=== PATIENT | female | born 1960 | race Caucasian/White ===

== ENCOUNTER 2021-01-25 20:38 | Inpatient (IN) | payer BC, SELFPAY ==
[2021-01-25] VITALS (9 sets, daily range): BP systolic 82–151; BP diastolic 44–96; PULSE 58–84; RESP 14–20; TEMP 36.5–36.9; O2SAT 93–100; BMI 37.3
--- NOTE | ~2021-01-25 | XR_ITS ---
EXAMINATION: XR chest 1V portable INDICATION: Pacemaker insertion TECHNIQUE: Portable AP chest at 1109 hours COMPARISON: 01/25/2021 FINDINGS: A dual-lead pacemaker of the left chest wall has been inserted which ends with its leads in expected positions. There is no pneumothorax. Cardiomegaly is noted. A mild diffuse interstitial pat tern persists but has decreased. There is no pleural effusion. The previously described retrocardiac opacity persists but is slightly decreased. IMPRESSION: 1. Pacemaker insertion without pneumothorax. 2. Cardiomegaly with improving pulmonary edema. 3. Persistent retrocardiac density, possibly pulmonary vasculature although focal infection or mass c ould have a similar appearance. Recommend followup radiographs in 10-14 days after appropriate therap y to evaluate for improvement/resolution or follow-up with CT. Reviewed, dictated and finalized at location A. IMPRESSION: 1. Pacemaker insertion without pneumothorax. 2. Cardiomegaly with improving pulmonary edema. 3. Persistent retrocardiac density, possibly pulmonary vasculature although foc al infection or mass could have a similar appearance. Recommend followup radiog raphs in 10-14 days after appropriate therapy to evaluate for improvement/resol ution or follow-up with CT.
--- NOTE | ~2021-01-25 | XR_ITS ---
EXAMINATION: XR chest 1V portable EXAM DATE: 01/25/2021 21:04 INDICATION: Right-sided back, shoulder pain for 45 minutes. Nausea. TECHNIQUE: Portable AP frontal chest x-ray was obtained. There is no prior study for comparison. FINDINGS: Cardiomegaly and pulmonary vascular congestion. Rather prominent left infrahilar density to be just vasculature. Can't exclude superimposed pneumonia or cancer, but reportedly patient's sympto ms were on the right side. Consider follow-up PA/lateral chest x-rays or chest CT. The lungs are otherwise clear. There is no pneumothorax suspected. There are no osseous abnormalities identified. IMPRESSION: 1. Retrocardiac masslike density, can't exclude pneumonia or cancer. PA/lateral chest x-ray, or ches t CT, could be nonemergent outpatient follow-up. 2. Cardiomegaly, pulmonary vascular congestion. Reviewed, dictated and finalized at location G. IMPRESSION: 1. Retrocardiac masslike density, can't exclude pneumonia or cancer. PA/latera l chest x-ray, or chest CT, could be nonemergent outpatient follow-up. 2. Cardiomegaly, pulmonary vascular congestion.
--- NOTE | ~2021-01-25 | XR_ITS ---
XR chest 2V DATE: 01/28/2021 11:00 INDICATION: 24 hours post pacemaker insertion TECHNIQUE: AP and lateral views COMPARISON: 01/27/2021 portable AP chest FINDINGS: Left-sided dual-lead pacemaker with leads overlying right atrium and right ventricle. Heart size appears borderline. No hilar or mediastinal enlargement. No pulmonary infiltrate or consolidati on, pleural effusion or pulmonary vascular congestion or pneumothorax is detected. IMPRESSION: Left dual-lead cardiac pacemaker No active pulmonary disease Reviewed, dictated and finalized at location A.
--- NOTE | 2021-01-25 20:50 | ECG_ITS ---
Measurements Intervals [place] Rate: 61 P: 34 [place]: 163 QRS: 2 QRSD: 95 T: 89 QT: 419 QTc: 425 Interpretive Statements SINUS RHYTHM DELAYED PRECORDIAL R/S TRANSITION LOW VOLTAGE- PRECORDIAL LEADS INFERIOR ST ELEVATION MYOCARDIAL INFARCT, ACUTE POSTERIOR INFARCT, ACUTE ABNORMAL ECG Electronically Signed On 01-26-2021 7:29:44 CDT by Humberto Greco D.O.
--- NOTE | 2021-01-25 20:56 | ED.GENADULT ---
HPI - General Adult General Chief complaint: Unspecified Stated complaint: RIGHT SHOULDER PAIN, SWEATS Time Seen by Provider: 01/25/21 20:52 Source: patient Mode of arrival: ambulatory Limitations: no limitations History of Present Illness HPI narrative: Patient is a 60-year-old female complaining of sudden onset of right shoulder pain 10 out of 10, aching, constant, nonradiating accompanied by diaphoresis that started approximately 1 hour prior to arrival. Patient denies any shortness of breath, abdominal pain, nausea, vomiting, fever or chills. Related Data Home Medications Medication Instructions Recorded Confirmed amlodipine 01/25/21 levothyroxine 01/25/21 potassium citrate meq PO 01/25/21 Allergies Allergy/AdvReac Type Severity Reaction Status Date / Time No Known Allergies Allergy Verified 01/25/21 20:59 Review of Systems Review of Systems: All systems reviewed & are unremarkable except as noted in HPI and below Constitutional: Constitutional: Denies body ache(s), Denies chills, Denies excessive sweating, Denies fatigue, Denies fever(s), Denies headache(s), Denies lethargy, Denies malaise, Denies weakness and Denies weight loss Eyes: Eyes: Denies blurry vision, Denies change in vision and Denies loss of vision ENT: Denies dizziness, Denies ear discharge, Denies headache(s), Denies lip swelling, Denies epistaxis, Denies nasal congestion, Denies neck pain, Denies throat swelling and Denies tongue swelling Cardiovascular: Cardiovascular: Denies chest pain, Denies chest pain at rest, Denies chest pain with activity, Denies diaphoresis, Denies rapid heart rate, Denies edema, Denies irregular heart rhythm, Denies lightheadedness, Denies palpitations, Denies dyspnea and Denies dyspnea on exertion Respiratory: Respiratory: Denies chest congestion, Denies cough, Denies hemoptysis, Denies dyspnea and Denies dyspnea on exertion Gastrointestinal: Gastrointestinal: Denies abdominal pain, Denies melena, Denies hematochezia, Denies diarrhea, Denies nausea, Denies vomiting and Denies hematemesis Musculoskeletal: Musculoskeletal: Denies abnormal gait, Denies deformity, Denies joint swelling, Denies limited range of motion, Denies neck pain and Denies numbness Neurologic: Denies Abnormal speech present, Denies abnormal gait, Denies confusion, Denies dizziness, Denies headache(s), Denies focal weakness, Denies loss of vision, Denies numbness, Denies Other visual disturbances, Denies Sensory deficit (Neuro) and Denies weakness Psychiatric: Psychiatric: Denies confusion, Denies depression, Denies auditory hallucinations, Denies homicidal ideation and Denies suicidal ideation Endocrine: Endocrine: Denies cold intolerance, Denies excessive sweating, Denies fatigue, Denies heat intolerance and Denies palpitations Hematologic/Lymphatic: Hematologic/Lymphatic: Denies easy bleeding and Denies easy bruising Allergic/Immunologic: Allergic/Immunologic: Denies lip swelling, Denies throat swelling and Denies tongue swelling PMFSH Comments Past medical history: Hypertension, diabetes, hyperlipidemia Social history: Positive for smoker, no EtOH or drug use Family history: Positive for coronary artery disease, hypertension and diabetes Exam Const: General: cooperative, healthy appearing, comfortable, no acute distress, well developed, alert and awake; No confusion Orientation/consciousness: oriented to person, oriented to place, oriented to time, patient oriented x3 and No confusion Limitations: no limitations HENMT: Head: normal to inspection, normocephalic and atraumatic Ears: hearing grossly normal bilaterally, TM normal on the right and TM normal on the left General nose exam: Normal external nose present, Normal nares present and No nasal discharge present Face and sinus: normal facial exam Mouth: Yes Normal oral and palatal mucosa present, Yes lip normal, Yes tongue normal and Yes oropharynx normal Throat: posterior oropharynx moni
[2021-01-25 21:02] LABS: Basophils Absolute Auto 0.1 K/mm3 (0.0-0.1); Basophils Percent Auto 0.9 % (0.2-1.2); Eosinophils Absolute Auto 0.2 K/mm3 (0-0.3); Hematocrit 46.7 % (37.0-47.0); Hemoglobin 15.4 g/dL (12.0-15.0); Immature Granulocyte Absolute 0.03 K/mm3 (0.00-0.031); Immature Granulocyte Percent A 0.3 % (0-0.5); Lymphocytes Absolute Auto 3.15 K/mm3 (0.9-3.2); Lymphocytes Percent Auto 34.8 % (18.3-44.2); Mean Corpuscular Volume 96.9 fl (80-100); Mean Platelet Volume 10.2 fl (7.4-10.4); Monocytes Absolute Auto 0.5 K/mm3 (0.1-0.6); Monocytes Percent Auto 5.3 % (2.6-8.5); Neutrophils Absolute Auto 5.1 K/mm3 (1.3-6.7); Neutrophils Percent Auto 56.7 % (45.5-73.1); Platelet Count Result 251 k/mm3 (150-375); Red Blood Count 4.82 M/mm3 (4.2-5.4); Red Cell Distribution Width 11.9 % (11.5-14.5); White Blood Count 9.1 K/mm3 (4.5-10.0)
[2021-01-25] MEDS: HEPARIN SODIUM 5,000 UNITS/ML VIAL 4000 UNITS IV PUSH (21:05)
[2021-01-25] MEDS: TICAGRELOR 90 MG TABLET 180 MG PO (21:07)
[2021-01-25] MEDS: NITROGLYCERIN SL 0.4 MG TABLET SUBLINGUAL (21:09)
[2021-01-25 21:11] LABS: INR 0.9; Prothrombin Time 12.1 Seconds (11.1-14.7)
[2021-01-25 21:12] LABS: Anion Gap 12 mmol/L (8-16); Blood Urea Nitrogen 14 mg/dL (7-17); Calcium 9.8 mg/dL (8.4-10.2); Carbon Dioxide 25 mmol/L (22-30); Chloride 100 mmol/L (98-107); Estimated CRCL calculation 52 ml/min; Estimated Glomerular Filt Rate 46; Glucose 164 mg/dL (65-105); Partial Thromboplastin Time 28.1 SECONDS (22.3-36.8); Potassium 3.4 mmol/L (3.4-5.0); Sodium 137 mmol/L (137-145)
--- NOTE | 2021-01-25 21:15 | PC.NURSE ---
2L NS started on pt addison md verbal order at this time.
[2021-01-25 21:23] LABS: Troponin I < 0.012 ng/mL (0.000-0.034)
[2021-01-25] MEDS: SODIUM CHLORIDE 0.9% IV 1,000 ML 999 ML (21:23)
--- NOTE | 2021-01-25 21:44 | PC.NURSE ---
to laboratory asst with 2 rn .
--- NOTE | 2021-01-25 22:40 | ECG_ITS ---
Measurements Intervals [place] Rate: 59 P: [place]: 0 QRS: 16 QRSD: 101 T: 111 QT: 397 QTc: 396 Interpretive Statements ECTOPIC ATRIAL RHYTHM WITH INTERMITTENT SINUS COMPLEXES LOW QRS VOLTAGE IN PRECORDIAL LEADS INFERIOR INFARCT, PROBABLY RECENT BASELINE ARTIFACT- II, III, AVR, AVF, V4-V6 ABNORMAL ECG Electronically Signed On 01-26-2021 7:36:58 CDT by Humberto Greco D.O.
--- NOTE | 2021-01-25 22:47 | WPDCARDPROC ---
Cardiac Cath Procedure Note Date of procedure:: 01/25/21 Performing physician:: Alpesh Walsh MD Indication:: ST-elevation MN Brief clinical history:: this is a 60-year-old woman with no previous known history of cardiac disease. She has hypertension diabetes obesity and cigarette smoking as risk factors. She presents to the emergency room this evening with interscapular back pain that began a short time before coming in. ECG in the emergency room demonstrated evidence of inferolateral ST elevation and in this setting emergency angiography has been requested. Procedure Procedure performed:: Emergency coronary angiography PCI to circumflex left ventriculography Sedation/Medication given:: fentanyl 50 mg Versed 2 start time 9:52 p.m. case time 10:35 p.m. sedation provided by Agatha Landis RN, trained observer Access site:: right femoral artery Estimated blood loss:: 15-20 cc Procedure note:: patient was brought to the cardiac catheterization lab in the emergency setting described above. The right femoral triangle was prepared and draped in the usual fashion. Anesthesia was provided with 1% lidocaine infiltrated locally. Using the modified Seldinger technique the femoral artery was punctured and a 6 Cambodian vascular sheath was placed. It took several minutes to access the femoral artery, arterial access was somewhat challenging. Following this I used a 5 Cambodian FL4 catheter to engage inject the left coronary artery in multiple projections. Next a 5 Cambodian JR4 catheter was used to engage inject the right coronary artery. Following this PCI of the circumflex was recommended and carried out as detailed below. The patient had received aspirin and Brilinta in the emergency room. She therefore received no additional anti-platelet therapy in the seed laboratory assistant. She was placed on systemic anticoagulation with bolus and infusion of Angiomax for this PCI. Following completion of intervention as detailed below a 5 Cambodian angled pigtail catheter was used to measure left-sided hemodynamics and to injected LV g in the DAVALOS projection. The case was then terminated the sheath was sutured position she was taken to the ICU for post MN /PCI recovery in stable condition there were no procedural complications and the was no sign of groin hematoma upon the. Findings:: Hemodynamics: Central aortic pressure is 110 over 64 left ventricle 110 over 5 end-diastolic pressure 18 there is no significant gradient on pullback across the. Left ventricle: the LV is modestly dilated there is akinesis of the posterior segment the anterolateral segment is modestly hypodynamic the global ejection fraction of visually estimated to be 40%. The left main coronary artery is large in caliber and widely patent the left anterior descending is a large caliber artery extending down to around the apex. The LAD has modest luminal plaquing with mild plaquing of atherosclerosis but no flow-limiting disease is identified. The circumflex is a rather large vessel there is a very proximal small OM 1 branch that appears to be free of significant disease after this the trunk of the circumflex is 100% occluded. This appears to be in abrupt thrombotic occlusion compatible with the acute MN. Right coronary artery is large in caliber and dominant to the posterior circulation right coronary also has modest diffuse luminal irregularities but no functionally significant coronary disease is seen. Intervention: The left coronary artery was engaged using a 6 Cambodian CLS 3.5 guiding catheter. I used a 0.014 BMW guidewire to probe the occlusion of the circumflex traverse the occluded segment into the distal aspect of the circumflex a very large OM branch. Following this the site of the occlusion was pre-dilated using a 3 x 20 mm emerge PTCA balloon restoring ROSE MARY 3 flow into the vessel. Now the vessel can be seen was very large. I stented the original target lesion at the site of the
--- NOTE | 2021-01-25 22:58 | PM.IMHP ---
H&P: HPI History of Present Illness Date/Time: 01/25/21 22:58 Chief Complaint: interscapular back pain Narrative: this is a 60-year-old woman who I am seeing briefly in the cardiac catheterization lab as she is being prepared for emergency angiography in the setting of ST-elevation ND. The patient states she has no previous history of known cardiac problems. She has been treated for hypertension chronically as well as recently being told that she has diabetes and some dyslipidemia. The patient has no history ischemic heart disease prior to this. She began to experience abrupt interscapular back pain describing this as a severe aching sensation about 8/10 in intensity. She came to the emergency room with the symptoms in private vehicle and upon arrival was found to have ST elevation in the in the inferolateral leads. Because of this emergency angiography and STEMI protocol was activated. Review of Systems Review of Systems: ROS unobtainable: Yes unobtainable due to medical condition Meds Home Medications and Allergies Home Medications Medication Instructions Recorded Confirmed Type amlodipine 01/25/21 History levothyroxine 01/25/21 History potassium citrate meq PO 01/25/21 History Allergies Allergy/AdvReac Type Severity Reaction Status Date / Time No Known Allergies Allergy Verified 01/25/21 20:59 Vital Signs Vital Signs - 24 hr 01/25/21 20:47 01/25/21 21:00 01/25/21 21:11 Temperature 36.9 C Pulse Rate 68 73 Respiratory Rate 14 16 Blood Pressure 151/96 H 140/86 82/44 L Pulse Oximetry 98 100 01/25/21 21:17 01/25/21 21:21 01/25/21 21:27 Temperature Pulse Rate 58 L 65 70 Respiratory Rate 19 16 16 Blood Pressure 104/57 L 109/62 128/72 Pulse Oximetry 95 96 96 01/25/21 21:41 Temperature Pulse Rate 68 Respiratory Rate 16 Blood Pressure 135/70 Pulse Oximetry 96 Exam Const: Other: Obese white female appearing her stated age appears to be remarkably stoic given the current situation. HENMT: Mouth: Yes moist mucous membranes Eyes: Sclera: sclerae normal Pupils: Equal, round and reactive pupils present Neck: Neck: supple Other: No obvious JVD carotid pulses are intact and are free of bruits Resp: Effort & Inspection: normal respiratory effort Auscultation: clear to auscultation bilaterally Cardio: Rate: regular rate Rhythm: regular rhythm Other: S4 is audible the PMI is not palpable there is no murmur GI: GI Palp: Yes Soft to palpation Auscultation: normal bowel sounds Skin: General skin exam: normal color Neuro: Cognition (Neuro): normal cognition Extrem: General: normal to inspection H&P: Results Labs Labs: Short CBC 01/25/21 Range/Units 20:57 WBC 9.1 (4.5-10.0) K/mm3 Hgb 15.4 H (12.0-15.0) g/dL Hct 46.7 (37.0-47.0) % Plt Count 251 (150-375) k/mm3 BMP 01/25/21 20:57 Sodium 137 Potassium 3.4 Chloride 100 Carbon Dioxide 25 BUN 14 Creatinine 1.20 H Glucose 164 H Calcium 9.8 Cardiac Enzymes 01/25/21 Range/Units 20:57 Troponin I < 0.012 (0.000-0.034) ng/mL Assessment and Plan Additional Plan this is a 60-year-old lady with risk factors including hypertension diabetes and cigarette smoking who presents to the hospital with abrupt onset of interscapular back pain a short time ago ECG is diagnostic of acute inferolateral myocardial infarction. In this setting and emergency angiogram is about to take place following that revascularization will be carried out as indicated by those findings. Alpesh Walsh MD [facility]
--- NOTE | 2021-01-25 23:00 | ADMGEN ---
This patient, Shanelle Rehman, was admitted to Intensive Care Unit-5. Patient/family oriented to hospital policies and general routines including ID bracelet, bed and alarms, visiting hours, pain management, procedures, bathroom and other care routines, personal items, smoking policy, room service/diet, and visiting hours. Information on how to activate the Rapid Response Team has been discussed. Patient/Family are encouraged to report perceived risks to care and to ask questions if they do not understand what they are told or what they should do.
[2021-01-25 23:24] LABS: Cholesterol 208 mg/dL (0-200); HDL Direct 34 mg/dL; Triglycerides 167 mg/dL (<150)
[2021-01-25 23:35] LABS: LDL Cholesterol Direct 116 mg/dL
[2021-01-25] MEDS: SODIUM CHLORIDE 0.9% IV 1,000 ML 125 ML IV CONT (23:59)
[2021-01-26] VITALS (26 sets, daily range): BP systolic 106–163; BP diastolic 69–105; PULSE 60–105; RESP 15–24; TEMP 36.7–37.2; O2SAT 92–99
[2021-01-26 02:21] LABS: Troponin I > 80.000 ng/mL (0.000-0.034)
--- NOTE | 2021-01-26 05:11 | ECG_ITS ---
Measurements Intervals [place] Rate: 73 P: [place]: 0 QRS: 19 QRSD: 88 T: 147 QT: 390 QTc: 430 Interpretive Statements WANDERING PACEMAKER OR ECTOPIC ATRIAL RHYTHM LOW QRS VOLTAGE IN LIMB LEADS NONSPECIFIC T-WAVE ABNORMALITY- INF/LAT LEADS BASELINE ARTIFACT- I, III, AVL, AVF ABNORMAL ECG Electronically Signed On 01-26-2021 21:33:57 CDT by Humberto Greco D.O.
[2021-01-26 06:03] LABS: Troponin I > 80.000 ng/mL (0.000-0.034)
[2021-01-26] MEDS: carvediloL 6.25 MG TABLET PO (08:11)
[2021-01-26] MEDS: ROSUVASTATIN 10 MG TABLET 20 MG PO (08:12)
[2021-01-26] MEDS: TICAGRELOR 90 MG TABLET PO ×2 (08:12→21:10)
[2021-01-26] MEDS: LOSARTAN POTASSIUM 25 MG TABLET PO (08:12)
[2021-01-26] MEDS: ENOXAPARIN 40 MG/0.4 ML SYRINGE SUB-Q (08:13)
[2021-01-26] MEDS: ASPIRIN 81 MG CHEWABLE TABLET PO (08:16)
[2021-01-26 08:46] LABS: Add Urine Microscopic? YES; Appearance Urine Clear (Clear); Bacteria Urine Trace /hpf; Bilirubin Urine Negative (Negative); Blood Urine Negative (Negative); Color Urine Yellow (Yellow); Glucose Urine UA Negative (Negative); Ketones Urine Trace mg/dL (Negative); Leukocyte Esterase Ur 3+ LEU/UL (Negative); Nitrate Urine Negative (Negative); Protein Urine Negative (Negative); Specific Grav Ur 1.016 (1.001-1.035); Squamous Epithelial Cell Urine Rare /hpf (Few); Urobilinogen Urine Negative mg/dL (<2.0)
--- NOTE | 2021-01-26 08:49 | PM.PNCARD ---
Progress Note: A&P Additional Plan 60-year-old lady with: Coronary artery disease presenting last night for the 1st time with acute ST-elevation IL an abrupt occlusion of the circumflex after OM1. Two Orsiro drug-eluting stents were deployed in this vessel with a very nice angiographic result. Vessel was very large in caliber. Troponin rise was as expected quite high. She is asymptomatic and hemodynamically stable this morning. We will transfer her to IMU and anticipate couple of more days in the hospital before discharge. spoke to the patient at some length about the huge importance of smoking cessation. Alpesh Walsh MD [facility] Subjective Date/time seen: Date of service:01/26/21 08:49 Interval history: Follow-up visit in this 60-year-old lady with: Acute ST-elevation [place] with abrupt occlusion of the circumflex after OM1. Status post successful PCI with 2 large drug-eluting stents restoring ROSE MARY 3 flow in the remainder of the vessel. Very high troponin rise following this procedure. Patient is now asymptomatic this morning. Did have a run of nonsustained ventricular tachycardia earlier this morning which was asymptomatic and did not require treatment. Exam Const: General: comfortable and no acute distress Other: Pleasant obese lady in no distress HENMT: Mouth: Yes moist mucous membranes Eyes: Sclera: sclerae normal Pupils: Equal, round and reactive pupils present Neck: Neck: supple and no JVD Carotids: bruit Resp: Effort & Inspection: normal respiratory effort Auscultation: clear to auscultation bilaterally Cardio: Rate: regular rate Rhythm: regular rhythm Other: no murmur no gallop GI: GI Palp: Yes Soft to palpation Auscultation: normal bowel sounds Skin: General skin exam: normal color Neuro: Cognition (Neuro): normal cognition Extrem: General: normal to inspection Other: right groin puncture site looks fine no hematoma no ecchymosis no bruit Objective Data Vital Signs Vital Signs: Vital Signs - 24 hr 01/25/21 20:47 01/25/21 21:00 01/25/21 21:11 Temperature 36.9 C Pulse Rate 68 73 Respiratory Rate 14 16 Blood Pressure 151/96 H 140/86 82/44 L Pulse Oximetry 98 100 01/25/21 21:17 01/25/21 21:21 01/25/21 21:27 Temperature Pulse Rate 58 L 65 70 Respiratory Rate 19 16 16 Blood Pressure 104/57 L 109/62 128/72 Pulse Oximetry 95 96 96 01/25/21 21:41 01/25/21 23:00 01/25/21 23:07 Temperature 36.5 C Pulse Rate 68 65 84 Respiratory Rate 16 20 Blood Pressure 135/70 116/73 Pulse Oximetry 96 93 01/26/21 00:00 01/26/21 01:38 01/26/21 01:40 Temperature Pulse Rate 68 72 65 Respiratory Rate 16 18 18 Blood Pressure 106/72 127/81 134/82 Pulse Oximetry 92 95 94 01/26/21 01:54 01/26/21 02:00 01/26/21 02:07 Temperature Pulse Rate 60 66 65 Respiratory Rate 18 16 Blood Pressure 111/74 115/80 Pulse Oximetry 95 94 01/26/21 02:40 01/26/21 03:00 01/26/21 04:00 Temperature 36.7 C Pulse Rate 63 69 66 Respiratory Rate 16 20 15 Blood Pressure 113/69 116/75 128/71 Pulse Oximetry 95 95 95 01/26/21 05:00 01/26/21 06:00 01/26/21 07:00 Temperature Pulse Rate 63 76 80 Respiratory Rate 16 22 H 16 Blood Pressure 112/71 129/83 129/77 Pulse Oximetry 94 95 95 01/26/21 08:00 01/26/21 08:11 Temperature Pulse Rate 64 79 Respiratory Rate 20 Blood Pressure 129/73 Pulse Oximetry 94 Intake/Output Intake/Output: Intake & Output 01/23/21 01/24/21 01/25/21 01/26/21 23:59 23:59 23:59 23:59 Intake Total 1200 Output Total 2300 Balance -1100 Meds/Results Medications: Active Medications Generic Name Dose Route Start Last Admin Trade Name Freq PRN Reason Stop Dose Admin Aspirin 81 mg 01/26/21 08:00 01/26/21 08:16 Aspirin 81 Mg Chewable Tablet PO 81 mg DAILY@0800 [facility] Administration Carvedilol 6.25 mg 01/26/21 09:00 01/26/21 08:11 Carvedilol 6.25 Mg Tablet PO 6.25 mg Q12HR RUTH Administration E
[2021-01-26 09:13] LABS: Basophils Percent Auto 0.3 % (0.2-1.2); Eosinophils Percent Auto 0.3 % (0-4.4); Hematocrit 47.9 % (37.0-47.0); Hemoglobin 15.9 g/dL (12.0-15.0); Immature Granulocyte Absolute 0.03 K/mm3 (0.00-0.031); Immature Granulocyte Percent A 0.3 % (0-0.5); Lymphocytes Absolute Auto 2.39 K/mm3 (0.9-3.2); Lymphocytes Percent Auto 20.9 % (18.3-44.2); Mean Corpuscular HGB Conc 33.2 g/dl (32-36); Mean Corpuscular Hemoglobin 32.6 pg (26-34); Mean Corpuscular Volume 98.2 fl (80-100); Mean Platelet Volume 10.4 fl (7.4-10.4); Monocytes Absolute Auto 0.7 K/mm3 (0.1-0.6); Monocytes Percent Auto 6.5 % (2.6-8.5); Neutrophils Absolute Auto 8.2 K/mm3 (1.3-6.7); Neutrophils Percent Auto 71.7 % (45.5-73.1); Platelet Count Result 225 k/mm3 (150-375); Red Blood Count 4.88 M/mm3 (4.2-5.4); Red Cell Distribution Width 11.9 % (11.5-14.5); White Blood Count 11.5 K/mm3 (4.5-10.0)
--- NOTE | 2021-01-26 09:24 | WPDCNINT ---
Assessment and Plan Assessment and plan (1) ST elevation (STEMI) myocardial infarction: Qualifiers: Involved coronary artery: unspecified coronary artery Qualified Code(s): I21.3 - ST elevation (STEMI) myocardial infarction of unspecified site Code(s): I21.3 - ST elevation (STEMI) myocardial infarction of unspecified site Status: Acute Assessment and Plan: status post PCI and stent placement in proximal circumflex continue aspirin beta-thuan statin ARB (2) NSVT (nonsustained ventricular tachycardia): Code(s): I47.2 - Ventricular tachycardia Status: Acute Assessment and Plan: secondary to OK check electrolytes continue beta-thuan check echo telemetry monitoring (3) Diabetes mellitus: Code(s): E11.9 - Type 2 diabetes mellitus without complications Status: Acute Assessment and Plan: patient was recently diagnosed with diabetes mellitus although she is currently not on any treatment for it sliding scale insulin at this time (4) Hypertension: Code(s): I10 - Essential (primary) hypertension Status: Acute Assessment and Plan: on beta-thuan and ARB (5) Hyperlipidemia: Code(s): E78.5 - Hyperlipidemia, unspecified Status: Acute Assessment and Plan: Crestor (6) Ischemic cardiomyopathy: Code(s): I25.5 - Ischemic cardiomyopathy Status: Acute Assessment and Plan: check echocardiogram (7) Dysuria: Code(s): R30.0 - Dysuria Status: Acute Assessment and Plan: patient was recently treated for UTI as an outpatient but she states she continues to have dysuria check UA and culture (8) Tobacco abuse: Code(s): Z72.0 - Tobacco use Status: Acute Assessment and Plan: patient was counseled to quit smoking Additional Plan DVT prophylaxis - subcu low vent Nutrition - cardiac diet Code Status - Full Code transfer out of ICU today Curriculum And Assessment Director Consult Note Consult date: 01/26/21 Time Seen: 08:00 HPI: Shanelle Rehman is a 60 year old female with past medical history of diabetes which was recently diagnosed, hypertension, hyperlipidemia, hypothyroidism and smoking who presented yesterday with chief complaint of back pain. Back pain was in the upper back in the middle, 9-10 out of 10 severe, sharp, no radiation no aggravating or relieving factors, pain resolved only after cardiac catheterization. symptoms were acid with nausea but no vomiting no shortness of breath or palpitations. workup in the ER showed ST segment elevation and code STEMI was activated. Patient was taken to supervisor cytogenetic laboratory for cardiac catheterization and was found to be having obstruction of circumflex. Patient had 2 stents placed and also injection of nitroglycerin for spasm. EF was estimated at 40%. Resolved at that time and she was admitted to ICU for further evaluation management. This more patient states she has back pain in the lower back which is chronic from laying in bed. Pain is 5/10 severe, aching quality with no radiation aggravating or relieving factor. She would like to set up. She denies any other complaints at this time. Review system was positive for dysuria. She was diagnosed with UTI about a month ago and was treated as an outpatient with antibiotics. She states she continues to have some dysuria although denies any fever chills or rigors. No abdominal pain. No hematuria or foul-smelling urine. Review of systems also positive for chronic back pain in lower back. All the systems were reviewed and were negative . Past medical history- diabetes hypertension hyperlipidemia hypothyroidism past surgical history- 3 C sections social history- no alcohol or drug use, works a desk Job, smokes 3/4 of a pack per day for last 16 years. Review of Systems Review of Systems: All systems reviewed & are unremarkable except as noted in HPI and below (HPI) PMFSH Past Me
[2021-01-26 09:25] LABS: Alanine Aminotransferase 68 U/L (4-35); Albumin Level 4.1 g/dL (3.5-5.1); Alkaline Phosphatase 78 U/L (38-126); Anion Gap 7 mmol/L (8-16); Aspartate Amino Transferase 334 U/L (14-36); Bilirubin,Total 0.7 mg/dL (0.2-1.3); Blood Urea Nitrogen 11 mg/dL (7-17); Carbon Dioxide 23 mmol/L (22-30); Chloride 107 mmol/L (98-107); Estimated CRCL calculation 67 ml/min; Estimated Glomerular Filt Rate > 60; Glucose 121 mg/dL (65-105); Magnesium 1.7 mg/dL (1.6-2.3); Potassium 4.2 mmol/L (3.4-5.0); Sodium 137 mmol/L (137-145)
[2021-01-26 09:46] LABS: Hemoglobin A1C 6.7 % (<5.7)
--- NOTE | 2021-01-26 10:01 | PC.NURSE ---
Cardiopulmonary Rehab Services flyer was given to patient in cardiac admissions folder.
[2021-01-26 12:36] LABS: Glucose Point of Care 146 mg/dl (65-105)
[2021-01-26 14:36] LABS: Glucose Point of Care 181 mg/dl (65-105)
--- NOTE | 2021-01-26 14:36 | ECG_ITS ---
Measurements Intervals [place] Rate: 87 P: AL: 0 QRS: 3 QRSD: 106 T: 146 QT: 372 QTc: 449 Interpretive Statements SINUS RHYTHM WITH SINUS ARRHYTHMIA INFERIOR INFARCT, AGE INDETERMINATE BORDERLINE ST-T WAVE ABNORMALITY- ANTEROLAT/HIGH LAT LEADS BASELINE ARTIFACT- AVF, V4-V6 ABNORMAL ECG Electronically Signed On 01-30-2021 9:46:05 CDT by Humberto Greco D.O.
[2021-01-26] MEDS: ATROPINE SULFATE 1 MG/10 ML SYRINGE 0.5 MG IV PUSH (14:40)
[2021-01-26] MEDS: DOPamine 400 MG/D5W 250 ML 400 MG/250 ML BAG 8.72 MG IV CONT (14:40)
[2021-01-26 15:04] LABS: Hematocrit 48.8 % (37.0-47.0); Hemoglobin 16.1 g/dL (12.0-15.0); Mean Corpuscular Hemoglobin 32.4 pg (26-34); Mean Corpuscular Volume 98.2 fl (80-100); Mean Platelet Volume 10.4 fl (7.4-10.4); Platelet Count Result 250 k/mm3 (150-375); Red Blood Count 4.97 M/mm3 (4.2-5.4); Red Cell Distribution Width 11.9 % (11.5-14.5); White Blood Count 13.4 K/mm3 (4.5-10.0)
[2021-01-26] MEDS: MAGNESIUM SULF 2 GM/WATER 50ML 2 GM/50 ML BAG IVPB (15:06)
--- NOTE | 2021-01-26 15:07 | PM.EVENT ---
Event Note Event Note Event Note: Patient was transferred to step-down unit from ICU today. Later in the step-down unit she had some issues with Arrhythmia. code blue was announced and I responded to code blue. By the time I reached room patient was awake and alert. On review of her rhythm patient had complete heart block which she was having intermittently. Her blood pressure is adequate with systolic of 160 and blood sugar was more than 100. she was awake alert and following commands. 12 lead EKG done and showed sinus rhythm with PACs but the telemetry strip did showed intermittent complete heart block. Dr. Walsh was contacted and he arrived to see patient. Patient was given 0.5 mg of atropine and started on low-dose dopamine drip. Patient was also placed on transcutaneous pacemaker as backup. 2 g of magnesium sulfate was ordered as her Mag was low normal. Repeat BMP and Mag was also ordered. For discussion with cardiology decision was made by pedicab driver to take patient to curb and gutter laborer for placement of temporary transvenous pacemaker at this time. He spoke to patient and patient's at bedside and both were agreeable. Patient was transferred to ICU meanwhile for closer monitoring until she goes to curb and gutter laborer. Patient will be going to curb and gutter laborer from ICU for the pacemaker as above-mentioned. Total Critical Care Time - 45 minutes Due to a high probability of clinically significant, life threatening deterioration, the patient required my highest level of preparedness to intervene emergently and I personally spent this critical care time directly and personally managing the patient. This critical care time included obtaining a history; examining the patient; pulse oximetry; ordering and review of studies; arranging urgent treatment with development of a management plan; evaluation of patient's response to treatment; frequent reassessment; and discussions with other providers. It was exclusive of separately billable procedures and treating other patients and teaching time. Please see Assessment and Plan section and the rest of the note for further information on patient assessment and treatment
[2021-01-26 15:13] LABS: Anion Gap 11 mmol/L (8-16); Blood Urea Nitrogen 10 mg/dL (7-17); Calcium 9.1 mg/dL (8.4-10.2); Carbon Dioxide 19 mmol/L (22-30); Chloride 107 mmol/L (98-107); Estimated CRCL calculation 67 ml/min; Estimated Glomerular Filt Rate > 60; Glucose 175 mg/dL (65-105); Magnesium 1.9 mg/dL (1.6-2.3); Potassium 3.8 mmol/L (3.4-5.0); Sodium 137 mmol/L (137-145)
--- NOTE | 2021-01-26 15:15 | WPDMODSED ---
Moderate Sedation Note-Pt Data Patient Data Diagnosis: complete heart block following acute [place] yesterday Present Complaint: syncopal episode Procedure to be performed/Plan: placement of temporary transvenous pacemaker Allergies Allergy/AdvReac Type Severity Reaction Status Date / Time No Known Allergies Allergy Verified 01/25/21 20:59 Home Medications Medication Instructions Recorded Confirmed Type acetaminophen 500 mg PO PRN PRN 01/25/21 01/25/21 History amlodipine 5 mg PO DAILY 01/25/21 01/25/21 History cholecalciferol (vitamin D3) 62.5 mcg PO DAILY 01/25/21 01/25/21 History [Dialyvite Vitamin D] levothyroxine 88 mcg PO DAILY 01/25/21 01/25/21 History potassium citrate 10 meq PO TID 01/25/21 01/25/21 History Current Medications: Active Medications Hydrocodone Bitart/Acetaminophen (Hydrocodone/Acetaminophen (*Crx) 5-325 Mg Tablet) 1 tab PO Q4H PRN PRN Reason: Pain Rated 4-6 Aspirin (Aspirin 81 Mg Chewable Tablet) 81 mg PO DAILY@0800 [facility] Last Admin: 01/26/21 08:16 Dose: 81 mg Documented by: Carvedilol (Carvedilol 6.25 Mg Tablet) 6.25 mg PO Q12HR [facility] Last Admin: 01/26/21 08:11 Dose: 6.25 mg Documented by: Dextrose (Dextrose 50% 25 Gm/50 Ml Syringe) 12.5 gm IV PUSH PRN PRN; Protocol PRN Reason: Hypoglycemia Enoxaparin Sodium (Enoxaparin 40 Mg/0.4 Ml Syringe) 40 mg SUB-Q DAILY [facility] Last Admin: 01/26/21 08:13 Dose: 40 mg Documented by: Glucagon (Glucagon For Inj 1 Mg Vial) 1 mg IM PRN PRN; Protocol PRN Reason: Hypoglycemia Glucose (Glucose Oral Gel 15 Gm Of Glucse In 37.5 Gm Tube) 15 gm PO PRN PRN; Protocol PRN Reason: Hypoglycemia Dextrose (Dextrose 5% 1,000 Ml) 1,000 mls @ 100 mls/hr IVPB PRN PRN; Protocol PRN Reason: Hypoglycemia Magnesium Sulfate (Magnesium Sulf 2 Gm/Water 50ml) 2 gm in 50 mls @ 50 mls/hr IVPB ONCE ONE Stop: 01/26/21 15:35 Last Admin: 01/26/21 15:06 Dose: 50 mls/hr Documented by: Insulin Aspart (Insulin Aspart (*Bkc) 100 Units/Ml) 2 - 5 units SUB-Q ACHS [facility]; Protocol Last Admin: 01/26/21 15:09 Dose: Not Given Documented by: Levothyroxine Sodium (Levothyroxine Sodium 88 Mcg Tablet) 88 mcg PO DAILY@0630 [facility] Losartan Potassium (Losartan Potassium 25 Mg Tablet) 25 mg PO DAILY [facility] Last Admin: 01/26/21 08:12 Dose: 25 mg Documented by: Nitroglycerin (Nitroglycerin Sl 0.4 Mg Tablet) 0.4 mg SUBLINGUAL Q5MIN PRN PRN Reason: Chest Pain Ondansetron HCl (Ondansetron Inj 4 Mg/2 Ml Vial) 4 mg IV PUSH Q4H PRN PRN Reason: Nausea And Vomiting Rosuvastatin Calcium (Rosuvastatin 10 Mg Tablet) 20 mg PO DAILY [facility] Last Admin: 01/26/21 08:12 Dose: 20 mg Documented by: Ticagrelor (Ticagrelor 90 Mg Tablet) 90 mg PO Q12HR [facility] Last Admin: 01/26/21 08:12 Dose: 90 mg Documented by: Sedation/Anesthesia: No previous sedation/anesthesia problems (including family history). [facility] Past Medical History Medical History (Updated 01/26/21 @ 09:30 by Donavon Landa MD) delivery delivered Diabetes mellitus Hyperlipidemia Hypertension Ischemic cardiomyopathy Family History Family History (Updated 01/26/21 @ 00:08 by Madelin June RN) Mother Cardiomegaly Other Neuropathy Social History Social History Smoking packs per day: 0.75 Smoking cigarettes per day: 15.0 Years smoked: 42 Smoking pack-years: 31.50 Smoking status: Current every day smoker Alcohol intake: never Substance use: never Gender identity (if verbalized by the patient): Female Spiritual care concerns: No Mod Sed Physical Exam Physical Exam Pre Procedural Exam: Normal: Airway, Lungs, Heart Size, Heart Rate, Heart Rhythm and Neuro Exam and Variation: Appearance ( obese white female no distress) Hours since solid foods: 12 Hours since liquid intake: 12 Internal Medicine - PN: Obj Da Vital Signs Vital Signs: Vital Signs - 24 hr 01/25/21 20:47 01/25/21 21:00 01/25/21 21:11 Temperature 36.9 C Pulse Rate 68 73 Respiratory Rate 14 16 Blood Pressure
--- NOTE | 2021-01-26 15:33 | PC.NURSE ---
1400- pt received from ICU- pt noted to have dysrhythmia's'-pt became unresponsive- no pulse- code blue called but pt regained pulse and responsiveness. Dr. Landa at bedside new orders noted- BP163/ 105 -EKG obtained-, O2 placed on 2l/nc, ; Pt had additional - intermittent CHB / asystole- Temporary pacer pads placed on pt ;see chart for rhythmn strips; Dr. Walsh at bedside- rhythmn strips reviewed . Dr. Walsh spoke with pt and need for temporary pacemaker- 1450 pt transferred back to ICU for closer monitoring-awaiting for computer laboratory technician team to arrive,report to Maira RIBEIRO
--- NOTE | 2021-01-26 16:11 | WPDCARDPROC ---
Cardiac Cath Procedure Note Date of procedure:: 01/26/21 Performing physician:: Alpesh Walsh MD Indication:: High-grade AV block following acute [place] Brief clinical history:: this is a 60-year-old woman who was brought to the research laboratory manager emergently last evening in the setting of acute ST-elevation [place]. She was treated successfully with occlusion of her large circumflex after OM1 with drug-eluting stent and had a nice angiographic result. While recovering today on the floor it was noticed that she was having episodes of abrupt loss of consciousness marked with intermittent complete heart block and actually had 1 episode with a couple of telemetry screens with nothing but P waves. For this reason she is groin brought urgently back to the research laboratory manager for placement of a temporary transvenous pacemaker. Procedure Procedure performed:: Temporary transvenous pacemaker implant Sedation/Medication given:: no sedation Access site:: right femoral vein Estimated blood loss:: minimal Procedure note:: patient was brought to the cardiac catheterization lab in the urgent setting described above. The femoral triangle was once again prepped and draped in sterile fashion. Anesthesia was injected locally with 1% lidocaine. Following this the right femoral vein was punctured and a 7 [place] vascular sheath was placed. After this a balloon tipped temporary pacing catheter was placed into the venous circulation into the level of the right atrium and then turned across the tricuspid valve into the right ventricle. The balloon was taken down and the device was advanced into the wall of the right ventricle. The device was connected to the temporary pacemaker generator good pacing and threshold performance were demonstrated. Following this I turned the device on at an output of 3 am a heart rate of 50, with ventricular demand mode. Findings:: As above Conclusion:: successful uncomplicated implantation of temporary transvenous pacing wire to treat complete heart block complicating acute [place] in this 60-year-old lady who presented last night and underwent emergency circumflex intervention at that time. Alpesh Walsh MD [facility]
[2021-01-26 21:17] LABS: Glucose Point of Care 160 mg/dl (65-105)
[2021-01-27] VITALS (26 sets, daily range): BP systolic 108–138; BP diastolic 66–97; PULSE 58–74; RESP 15–24; TEMP 36.3–37; O2SAT 95–99
--- NOTE | 2021-01-27 | ECHO_ITS ---
Patient Info Name: Shanelle Rehman Age: 60 years : 1960 Gender: Female Ht: 65 in Wt: 205 lbs BSA: 2.10 m2 HR: 62 bpm BP: 108 / 66 mmHg Heart Rhythm: Sinus Rhythm Technical Quality: Good Exam Date: 01/27/2021 8:48 AM Exam Location: [facility] Pulmonary Exam Room: ICU8 Patient Status: Inpatient Admit Date: 01/25/2021 Staff Ordering Physician: Donavon Landa MD Grade Checker: Karely Chan RDCS Attending Provider: Alpesh Walsh MD Exam Type: CA echo doppler color flow Study Info Indications - stemi Complete two-dimensional, color flow and Doppler transthoracic echocardiogram is performed. Summary 1. Complete two-dimensional, color flow and Doppler transthoracic echocardiogram is performed. 2. There is mild concentric increased left ventricular wall thickness. 3. Left ventricular systolic function is mildly reduced, estimated at 45-50%. 4. The posterior wall is akinetic the lateral wall is hypodynamic. 5. No significant valvular abnormalities. Left Ventricle Left ventricular chamber dimension is normal. Left ventricular systolic function is mildly reduced, estimated at 45-50%. There is mild concentric increased left ventricular wall thickness. The left ventricular diastolic function is normal. The posterior wall is akinetic the lateral wall is hypodynamic. Right Ventricle Right ventricular chamber dimension is normal. Left Atria Left atrial chamber dimension is normal. Right Atria Right atrial chamber dimension is normal. Aortic Valve The aortic valve is normal. Pulmonic Valve The pulmonic valve is not well visualized. Mitral Valve The mitral valve has normal leaflets. Tricuspid Valve The tricuspid valve leaflets are normal. Pericardium/Pleural The pericardium appears normal. Aorta The aortic root size at the sinus of Valsalva is normal. Left Ventricular Outflow Tract Name Value Normal LVOT 2D LVOT Diameter 2.0 cm LVOT Doppler LVOT Peak Gradient 4 mmHg LVOT Mean Gradient 2 mmHg LVOT VTI 21 cm LVOT VTI/AV VTI Ratio 0.8 LVOT Stroke Volume 66 ml LVOT CO 12.8 l/min LVOT CI 6.1 l/min/m2 Pulmonic Valve Name Value Normal PV Doppler PV Peak Gradient 2 mmHg Mitral Valve Name Value Normal MV Doppler MV Decel [place] 226 cm/s2 MV PHT 71 ms MV Area (PHT)
[2021-01-27 04:43] LABS: Hematocrit 42.3 % (37.0-47.0); Hemoglobin 14.4 g/dL (12.0-15.0); Mean Corpuscular Hemoglobin 32.4 pg (26-34); Mean Corpuscular Volume 95.3 fl (80-100); Mean Platelet Volume 10.5 fl (7.4-10.4); Platelet Count Result 233 k/mm3 (150-375); Red Blood Count 4.44 M/mm3 (4.2-5.4); Red Cell Distribution Width 11.9 % (11.5-14.5)
[2021-01-27 05:03] LABS: Alanine Aminotransferase 62 U/L (4-35); Albumin Level 3.9 g/dL (3.5-5.1); Alkaline Phosphatase 76 U/L (38-126); Anion Gap 7 mmol/L (8-16); Aspartate Amino Transferase 174 U/L (14-36); Bilirubin,Total 0.8 mg/dL (0.2-1.3); Blood Urea Nitrogen 10 mg/dL (7-17); Calcium 8.6 mg/dL (8.4-10.2); Carbon Dioxide 21 mmol/L (22-30); Chloride 108 mmol/L (98-107); Estimated CRCL calculation 72 ml/min; Estimated Glomerular Filt Rate > 60; Glucose 133 mg/dL (65-105); Magnesium 2.1 mg/dL (1.6-2.3); Potassium 3.5 mmol/L (3.4-5.0); Sodium 136 mmol/L (137-145)
[2021-01-27] MEDS: LEVOTHYROXINE SODIUM 88 MCG TABLET PO (06:14)
[2021-01-27] MEDS: ROSUVASTATIN 10 MG TABLET 20 MG PO (08:18)
[2021-01-27] MEDS: LOSARTAN POTASSIUM 25 MG TABLET PO (08:18)
--- NOTE | 2021-01-27 08:22 | PC.NURSE ---
Patient c/o burning in veins above site, notified, IV Potassium Chloride discontinued and switched to PO.
[2021-01-27] MEDS: POTASSIUM CHLORIDE 20 MEQ TABLET 40 MEQ PO (08:25)
[2021-01-27] MEDS: ASPIRIN 81 MG CHEWABLE TABLET PO (08:25)
[2021-01-27] MEDS: TICAGRELOR 90 MG TABLET PO ×2 (08:25→20:35)
--- NOTE | 2021-01-27 08:34 | WPDINTPN ---
Progress Note: A&P Assessment and Plan (1) CHB (complete heart block): Code(s): I44.2 - Atrioventricular block, complete Status: Acute Assessment and Plan: patient developed intermittent complete heart block yesterday after transfer out of ICU which is likely a complication of her LA. Patient underwent transvenous pacemaker placement yesterday. Currently in sinus [place] and intermittent V pacing patient is scheduled for permanent pacemaker placement today continue ICU monitoring replace low potassium Coreg discontinued (2) ST elevation (STEMI) myocardial infarction: Qualifiers: Involved coronary artery: unspecified coronary artery Qualified Code(s): I21.3 - ST elevation (STEMI) myocardial infarction of unspecified site Code(s): I21.3 - ST elevation (STEMI) myocardial infarction of unspecified site Status: Acute Assessment and Plan: status post PCI and stent placement in proximal circumflex continue aspirin b statin ARB (3) NSVT (nonsustained ventricular tachycardia): Code(s): I47.2 - Ventricular tachycardia Status: Acute Assessment and Plan: secondary to [place] Replace electrolytes Check echo Telemetry monitoring (4) Diabetes mellitus: Code(s): E11.9 - Type 2 diabetes mellitus without complications Status: Acute Assessment and Plan: patient was recently diagnosed with diabetes mellitus although she is currently not on any treatment for it sliding scale insulin at this time (5) Hypertension: Code(s): I10 - Essential (primary) hypertension Status: Acute Assessment and Plan: on beta-thuan and ARB (6) Hyperlipidemia: Code(s): E78.5 - Hyperlipidemia, unspecified Status: Acute Assessment and Plan: Crestor (7) Ischemic cardiomyopathy: Code(s): I25.5 - Ischemic cardiomyopathy Status: Acute Assessment and Plan: check echocardiogram (8) Dysuria: Code(s): R30.0 - Dysuria Status: Acute Assessment and Plan: patient was recently treated for UTI as an outpatient but she states she continues to have dysuria UA suggests UTI will start Rocephin culture pending (9) Tobacco abuse: Code(s): Z72.0 - Tobacco use Status: Acute Assessment and Plan: patient was counseled to quit smoking Additional Plan DVT prophylaxis - subcu lovenox Nutrition - NPO Code Status - Full Code Subjective Date/time seen: 01/27/21 Overnight events reviewed. Afebrile. Patient yesterday developed complete heart block and had a transvenous pacemaker placed and transferred back to ICU. this morning she denies any complaints and is tired of lying flat in bed. She is anxious about the pacemaker placement. Patient denies fever, chest pain, shortness of breath, cough, nausea vomiting, abdominal pain, diarrhea, headache or constipation. all the systems were reviewed and were negative Review of Systems Review of Systems: All systems reviewed & are unremarkable except as noted in HPI and below (HPI) Exam Narrative: Exam Narrative: General: Pt is alert awake and in NAD Lungs/Chest: Trachea central Clear BS B/L, No crackles or wheezing. Cardiac: RRR. Normal S1 S2. No murmurs Circulation: Pedal pulses are intact and symmetrical. Abdomen: Normal bowel sounds.. Soft. NT. ND. Extremities: No clubbing, cyanosis or edema. Warm right groin has dressing transvenous pacemaker in place : Rogers in place Neurologic: Follows commands. Moves all 4 extremities PERRL Skin: No Rash Objective Data Vital Signs Vital Signs: Vital Signs - 24 hr 01/26/21 10:00 01/26/21 12:00 01/26/21 14:00 Temperature 37.0 C Pulse Rate 84 82 84 Pulse Rate [Right Pedal (Dorsalis Pedis) Doppler] Respiratory Rate 15 Blood Pressure 143/88 H Pulse Oximetry 96 01/26/21 14:05 01/26/21 14:20 01/26/21 14:30 Temperature 37.2 C Pulse Rate 86 86 Pulse Rate [
--- NOTE | 2021-01-27 08:54 | WPDMODSED ---
Moderate Sedation Note-Pt Data Patient Data Diagnosis: intermittent complete heart block following acute [place] Present Complaint: syncope Procedure to be performed/Plan: permanent pacemaker implantation Allergies Allergy/AdvReac Type Severity Reaction Status Date / Time No Known Allergies Allergy Verified 01/25/21 20:59 Home Medications Medication Instructions Recorded Confirmed Type acetaminophen 500 mg PO PRN PRN 01/25/21 01/25/21 History amlodipine 5 mg PO DAILY 01/25/21 01/25/21 History cholecalciferol (vitamin D3) 62.5 mcg PO DAILY 01/25/21 01/25/21 History [Dialyvite Vitamin D] levothyroxine 88 mcg PO DAILY 01/25/21 01/25/21 History potassium citrate 10 meq PO TID 01/25/21 01/25/21 History Current Medications: Active Medications Hydrocodone Bitart/Acetaminophen (Hydrocodone/Acetaminophen (*Crx) 5-325 Mg Tablet) 1 tab PO Q4H PRN PRN Reason: Pain Rated 4-6 Aspirin (Aspirin 81 Mg Chewable Tablet) 81 mg PO DAILY@0800 [facility] Last Admin: 01/27/21 08:25 Dose: 81 mg Documented by: Dextrose (Dextrose 50% 25 Gm/50 Ml Syringe) 12.5 gm IV PUSH PRN PRN; Protocol PRN Reason: Hypoglycemia Enoxaparin Sodium (Enoxaparin 40 Mg/0.4 Ml Syringe) 40 mg SUB-Q DAILY [facility] Last Admin: 01/27/21 07:44 Dose: Not Given Documented by: Glucagon (Glucagon For Inj 1 Mg Vial) 1 mg IM PRN PRN; Protocol PRN Reason: Hypoglycemia Glucose (Glucose Oral Gel 15 Gm Of Glucse In 37.5 Gm Tube) 15 gm PO PRN PRN; Protocol PRN Reason: Hypoglycemia Dextrose (Dextrose 5% 1,000 Ml) 1,000 mls @ 100 mls/hr IVPB PRN PRN; Protocol PRN Reason: Hypoglycemia Ceftriaxone Sodium/Dextrose (Rocephin 1 Gm/D5w 50 Ml) 1 gm in 50 mls @ 100 [facility]ls[facility] Aspart (Insulin Aspart (*Bkc) 100 Units/Ml) 2 - 5 units SUB-Q ACHS [facility]; Protocol Last Admin: 01/27/21 07:45 Dose: Not Given Documented by: Levothyroxine Sodium (Levothyroxine Sodium 88 Mcg Tablet) 88 mcg PO DAILY@0630 [facility] Last Admin: 01/27/21 06:14 Dose: 88 mcg Documented by: Losartan Potassium (Losartan Potassium 25 Mg Tablet) 25 mg PO DAILY [facility] Last Admin: 01/27/21 08:18 Dose: 25 mg Documented by: Nitroglycerin (Nitroglycerin Sl 0.4 Mg Tablet) 0.4 mg SUBLINGUAL Q5MIN PRN PRN Reason: Chest Pain Ondansetron HCl (Ondansetron Inj 4 Mg/2 Ml Vial) 4 mg IV PUSH Q4H PRN PRN Reason: Nausea And Vomiting Rosuvastatin Calcium (Rosuvastatin 10 Mg Tablet) 20 mg PO DAILY [facility] Last Admin: 01/27/21 08:18 Dose: 20 mg Documented by: Ticagrelor (Ticagrelor 90 Mg Tablet) 90 mg PO Q12HR [facility] Last Admin: 01/26/21 21:10 Dose: 90 mg Documented by: Sedation/Anesthesia: No previous sedation/anesthesia problems (including family history). [facility] Past Medical History Medical History (Updated 01/27/21 @ 08:37 by Donavon Landa MD) delivery delivered Diabetes mellitus Hyperlipidemia Hypertension Ischemic cardiomyopathy Family History Family History (Updated 01/26/21 @ 00:08 by Madelin June RN) Mother Cardiomegaly Other Neuropathy Social History Social History Smoking packs per day: 0.75 Smoking cigarettes per day: 15.0 Years smoked: 42 Smoking pack-years: 31.50 Smoking status: Current every day smoker Alcohol intake: never Substance use: never Gender identity (if verbalized by the patient): Female Spiritual care concerns: No Mod Sed Physical Exam Physical Exam Pre Procedural Exam: Normal: Airway, Lungs, Heart Rate, Heart Rhythm, Neuro Exam and Extremities and Variation: Appearance ( overweight white female supine in bed with temporary pacemaker in place) and Heart Size ( PMI difficult to palpate) Hours since solid foods: 12 Hours since liquid intake: 12 Mallampati Classification: class II Internal Medicine - PN: Obj Da Vital Signs Vital Signs: Vital Signs - 24 hr 01/26/21 10:00 01/26/21 12:00 01/26/21 14:00 Temperature 37.0 C Pulse Rate 84 82 84 Pulse Rate [Right Pedal (Dorsalis Pedis) Doppler] Respiratory Rate 15
--- NOTE | 2021-01-27 09:11 | PC.NURSE ---
Patient off floor to laboratory technologist for permanent Pacemaker placement.
--- NOTE | 2021-01-27 10:35 | PC.NURSE ---
Received report from GEMA Bush. Procedure completed without issue. Updated RN on patient's spouse location in ICU waiting room.
--- NOTE | 2021-01-27 10:47 | ECG_ITS ---
Measurements Intervals [place] Rate: 63 P: 78 MT: 167 QRS: 28 QRSD: 110 T: 202 QT: 431 QTc: 443 Interpretive Statements ELECTRONIC ATRIAL PACEMAKER WITH INHIBITION LOW QRS VOLTAGE- DIFFUSE LEADS BORDERLINE ST-T WAVE ABNORMALITY- DIFFUSE LEADS BASELINE ARTIFACT- V4-V5 BORDERLINE ECG Electronically Signed On 01-27-2021 15:41:11 CDT by Humberto Greco D.O.
--- NOTE | 2021-01-27 10:50 | WPDCARDPROC ---
Cardiac Cath Procedure Note Date of procedure:: 01/27/21 Performing physician:: Alpesh Walsh MD Indication:: complete heart block following acute NM Brief clinical history:: this is a 60-year-old woman presented to the hospital with acute lateral ST-elevation NM and underwent emergency PCI to the circumflex 2 days ago. Yesterday on postop day 1. She developed episodes of syncope with high-grade AV block and several telemetry screens with nothing but P waves. A temporary pacemaker was placed urgently yesterday and a permanent device is now being implanted for this reason today. Procedure Procedure performed:: Permanent pacemaker implantation Sedation/Medication given:: fentanyl 50 mg Versed 2 mg Access site:: left subclavian vein Estimated blood loss:: 20-30 cc Procedure note:: patient was brought to the cardiac catheterization lab in the postabsorptive state. The left anterior chest wall was prepped and draped in the usual fashion. The patient then received 1% lidocaine injected inferior to the clavicle. Following this an incision was made about 1 in below the clavicle from the midclavicular line to the deltopectoral groove. Following this electrocautery was used to provide cutaneous hemostasis. Sharp and blunt dissection was then used to separate the subcutaneous tissue and exposed the prepectoral fascia. The pacemaker pocket was then created inferior to the incision using blunt dissection. The pocket was packed with an antibiotic-soaked 4 x 4. Following this attention was turned to venous access. Using the SafeSheath kits with the introducer needles 2 separate punctures were made to the left subclavian vein and I supplied guidewires were advanced under fluoroscopic visualization in the venous circulation to the level of the right atrium. Using the safe sheaths then the leads were placed into the venous circulation and advanced to the level of the right atrium. The sheaths were peeled away and removed. Attention was then turned to the ventricular lead. I removed the stylet used a 3 cc syringe to form a J-tip stylet to steer lead through the RV and out to the pulmonary artery position. A straight stylet was then placed in the lead was withdrawn and placed into the right ventricular apex. The fixation screw was deployed and the lead was tested using the analyzer. Appropriate pacing and sensing performance was demonstrated. Initially impedance was somewhat high at 1100 Ohms. This then was observed while the rest of the procedure was completed and was stable at 900 Ohms at the end of the case. There was excellent lead contact excellent threshold and sensing as detailed below. Following this attention was turned to the atrial lead. The straight stylet was removed and a preformed J stylet was used to place the lead tip in the right atrial appendage. The fixation screw was deployed at upon withdrawal of the stylet the lead tip was fixed into position. Following this the leads were secured to the base of the pocket using the suture sleeves and 2 0 silk ties. The retained sponge was removed and the pocket was irrigated with Ancef infused saline. After this the leads were secured to the pacemaker generator using the supplied torque wrench and the entire assembly was placed into the newly created pocket. The pocket was then closed in layers using 3 0 Vicryl in interrupted fashion for the subcutaneous tissue and 4 0 Vicryl in a running subcuticular fashion for the skin. The wound was dressed with an Aquacel dressing a pressure dressing in the left arm will be placed in an immobilizer. The procedure was well tolerated and uncomplicated. Postop ECG x-ray were ordered to be done in the ICU. Findings:: The patient received a Biotronik dual-chamber pacemaker model number [id number] DR-T serial number [id number]. Device is programmed in the DDD mode lower rate limit 60 upper rate limit 130. The atrial lead is a Biotronik active fixation bipolar lead mo
[2021-01-27] MEDS: SODIUM CHLORIDE 0.9% IV 1,000 ML 50 ML IV CONT (11:36)
[2021-01-27 12:13] LABS: Glucose Point of Care 120 mg/dl (65-105)
[2021-01-27] MEDS: ACETAMINOPHEN 325 MG TABLET 650 MG PO ×2 (12:20→17:54)
[2021-01-27 20:35] LABS: Glucose Point of Care 116 mg/dl (65-105)
[2021-01-27] MEDS: HYDROcodone/acetaminophen (*CRX) 5-325 MG TABLET 1 TAB PO (22:04)
[2021-01-28] VITALS (15 sets, daily range): BP systolic 110–133; BP diastolic 66–80; PULSE 60–74; RESP 12–25; TEMP 36.1–36.8; O2SAT 94–100
[2021-01-28] MEDS: ACETAMINOPHEN 325 MG TABLET 650 MG PO (02:02)
[2021-01-28 04:32] LABS: Hematocrit 44.8 % (37.0-47.0); Hemoglobin 14.8 g/dL (12.0-15.0); Mean Corpuscular Hemoglobin 32.5 pg (26-34); Mean Corpuscular Volume 98.2 fl (80-100); Mean Platelet Volume 10.6 fl (7.4-10.4); Platelet Count Result 212 k/mm3 (150-375); Red Blood Count 4.56 M/mm3 (4.2-5.4); Red Cell Distribution Width 12.1 % (11.5-14.5); White Blood Count 9.3 K/mm3 (4.5-10.0)
[2021-01-28] MEDS: LEVOTHYROXINE SODIUM 88 MCG TABLET PO (05:49)
[2021-01-28] MEDS: ASPIRIN 81 MG CHEWABLE TABLET PO (07:56)
[2021-01-28] MEDS: ENOXAPARIN 40 MG/0.4 ML SYRINGE SUB-Q (07:56)
[2021-01-28] MEDS: TICAGRELOR 90 MG TABLET PO ×2 (07:56→21:46)
[2021-01-28] MEDS: LOSARTAN POTASSIUM 25 MG TABLET PO (07:57)
[2021-01-28] MEDS: ROSUVASTATIN 10 MG TABLET 20 MG PO (07:57)
[2021-01-28 08:06] LABS: Glucose Point of Care 120 mg/dl (65-105)
--- NOTE | 2021-01-28 10:53 | WPDINTPN ---
Progress Note: A&P Assessment and Plan (1) CHB (complete heart block): Code(s): I44.2 - Atrioventricular block, complete Status: Acute Assessment and Plan: patient developed intermittent complete heart block post PCI, likely a complication of her MN. - PPM inserted 01/27/21 - continue monitoring - replace low potassium - Coreg discontinued (2) ST elevation (STEMI) myocardial infarction: Qualifiers: Involved coronary artery: unspecified coronary artery Qualified Code(s): I21.3 - ST elevation (STEMI) myocardial infarction of unspecified site Code(s): I21.3 - ST elevation (STEMI) myocardial infarction of unspecified site Status: Acute Assessment and Plan: status post PCI and stent placement in proximal circumflex continue aspirin, Brilnta, statin ARB (3) NSVT (nonsustained ventricular tachycardia): Code(s): I47.2 - Ventricular tachycardia Status: Acute Assessment and Plan: Resolved secondary to MN Replace electrolytes Echo 01/27/21: Summary 1. Complete two-dimensional, color flow and Doppler transthoracic echocardiogram is performed. 2. There is mild concentric increased left ventricular wall thickness. 3. Left ventricular systolic function is mildly reduced, estimated at 45-50%. 4. The posterior wall is akinetic the lateral wall is hypodynamic. 5. No significant valvular abnormalities. (4) Diabetes mellitus: Code(s): E11.9 - Type 2 diabetes mellitus without complications Status: Acute Assessment and Plan: patient was recently diagnosed with diabetes mellitus although she is currently not on any treatment for it sliding scale insulin at this time (5) Hypertension: Code(s): I10 - Essential (primary) hypertension Status: Acute Assessment and Plan: on beta-thuan and ARB (6) Hyperlipidemia: Code(s): E78.5 - Hyperlipidemia, unspecified Status: Acute Assessment and Plan: Crestor (7) Ischemic cardiomyopathy: Code(s): I25.5 - Ischemic cardiomyopathy Status: Acute Assessment and Plan: ECHO 01/27/21: Summary 1. Complete two-dimensional, color flow and Doppler transthoracic echocardiogram is performed. 2. There is mild concentric increased left ventricular wall thickness. 3. Left ventricular systolic function is mildly reduced, estimated at 45-50%. 4. The posterior wall is akinetic the lateral wall is hypodynamic. 5. No significant valvular abnormalities. (8) Dysuria: Code(s): R30.0 - Dysuria Status: Acute Assessment and Plan: patient was recently treated for UTI as an outpatient but she states she continues to have dysuria UA suggests UTI continue Rocephin Urine cx E.coli. sensitive to ceftriaxone (9) Tobacco abuse: Code(s): Z72.0 - Tobacco use Status: Acute Assessment and Plan: patient was counseled to quit smoking Additional Plan DVT prophylaxis - SCDs Nutrition - Heart healthy Code Status - Full Code Subjective Date/time seen: 01/28/21 10:53 Interval history: ST elevation (STEMI) myocardial infarction status post PCI and stent placement to proximal circumflex after which she developed complete heart block s/p pacemaker 01/28/2021: Pt seen and examined. Denies any chest pain, SOB,. complains of nausea but NO vomiting. hemodynamically stable, good UO, afebrile. Pt being intermittently paced. Good O2 sats on room air Review of Systems Review of Systems: All systems reviewed & are unremarkable except as noted in HPI and below (HPI) Exam Narrative: Exam Narrative: General: Pt is alert awake and in NAD Lungs/Chest: Trachea central Clear BS B/L, No crackles or wheezing. Cardiac: RRR. Normal S1 S2. No murmurs, with some paced beats Circulation: Pedal pulses are intact and symmetrical. groin site without ecchymosis or hematoma Abdomen: Normal bowel sounds.. Soft. NT. ND. Extremities: No clubbin
[2021-01-28 11:46] LABS: Glucose Point of Care 133 mg/dl (65-105)
[2021-01-28 11:46] LABS: Alanine Aminotransferase 44 U/L (4-35); Albumin Level 3.5 g/dL (3.5-5.1); Alkaline Phosphatase 72 U/L (38-126); Anion Gap 9 mmol/L (8-16); Aspartate Amino Transferase 72 U/L (14-36); Bilirubin,Total 0.6 mg/dL (0.2-1.3); Blood Urea Nitrogen 11 mg/dL (7-17); Calcium 8.9 mg/dL (8.4-10.2); Carbon Dioxide 20 mmol/L (22-30); Chloride 110 mmol/L (98-107); Estimated CRCL calculation 58 ml/min; Estimated Glomerular Filt Rate 57; Glucose 122 mg/dL (65-105); Potassium 3.8 mmol/L (3.4-5.0); Sodium 139 mmol/L (137-145)
--- NOTE | 2021-01-28 12:46 | PM.PNCARD ---
Progress Note: A&P Assessment and Plan (1) ST elevation (STEMI) myocardial infarction: Qualifiers: Involved coronary artery: unspecified coronary artery Qualified Code(s): I21.3 - ST elevation (STEMI) myocardial infarction of unspecified site Code(s): I21.3 - ST elevation (STEMI) myocardial infarction of unspecified site Status: Acute Assessment and Plan: S/P 2 DOMINIQUE to mid CX Doing well w/o recurrent sx Cont DAPT, rosuvastatin Add BB and ACEI Counseled pt about her recent cardiac events, stents, DAPT and other medical tx, FU, activity restrictions, etc. Transfer to Tele Anticipate discharge tmr. (2) Ischemic cardiomyopathy: Code(s): I25.5 - Ischemic cardiomyopathy Status: Acute Assessment and Plan: Mild LV dysfunction, EF 45-50% (3) CHB (complete heart block): Code(s): I44.2 - Atrioventricular block, complete Status: Acute (4) NSVT (nonsustained ventricular tachycardia): Code(s): I47.2 - Ventricular tachycardia Status: Acute Assessment and Plan: Non so far today. (5) S/P cardiac pacemaker procedure: Code(s): Z95.0 - Presence of cardiac pacemaker Status: Acute Assessment and Plan: Pacemaker implant 01/27/2021 Normal function when checked today, excellent thresholds (reviewed report). Counseled pt re: pacer function, incision care, FU, etc. (6) Hypertension: Code(s): I10 - Essential (primary) hypertension Status: Acute Assessment and Plan: Controlled (7) Hyperlipidemia: Code(s): E78.5 - Hyperlipidemia, unspecified Status: Acute Assessment and Plan: Taking rosuvastatin (8) Diabetes mellitus: Code(s): E11.9 - Type 2 diabetes mellitus without complications Status: Acute Assessment and Plan: Tx per hospitalists (9) Tobacco abuse: Code(s): Z72.0 - Tobacco use Status: Acute Assessment and Plan: Will resume Kcl for renal tubular acidosis Subjective Date/time seen: 01/28/21 12:46 Interval history: Follow-up visit in this 60-year-old lady admitted 01/25/2021 with: Acute ST-elevation [place] with abrupt occlusion of the circumflex after OM1. Status post successful PCI with 2 large drug-eluting stents restoring ROSE MARY 3 flow in the remainder of the vessel. Very high troponin rise following this procedure. Later on January 25 she had a syncopal episode and had high degree AV block and transient CHB. A temporary transvenous pacemaker was placed. A permanent dual chamber Biotronik pacemaker was placed on 01/27/2021. Date of Service 01/28/2021: Doing well today, slept well. Has been ambulating in her room but feels a little weak. No CP or SOB. Tele shows a-pace, V-sensing. Some NSVT, polymorphic, for 4-6 beats yesterday, none today. Review of Systems Constitutional: Constitutional: Reports fatigue and Reports weakness Eyes: Eyes: Reports no additional eye complaints ENT: Denies epistaxis Cardiovascular: Cardiovascular: Denies chest pain, Denies pedal edema, Denies leg edema and Denies lightheadedness Respiratory: Respiratory: Denies dyspnea and Denies dyspnea on exertion Gastrointestinal: Gastrointestinal: Denies abdominal pain and Denies nausea Genitourinary: Genitourinary: Denies hematuria Musculoskeletal: Comments: Pacer site is sore. Integumentary/Breasts: Skin/Breast: Denies rash Neurologic: Reports system reviewed and no additional complaints, except as documented Psychiatric: Psychiatric: Reports no additional psychiatric complaints Exam Narrative: Exam Narrative: Pleasant middle-aged lady supine in bed, NAd, lots of questions. Const: General: comfortable and no acute distress HENMT: General nose exam: no epistaxis Eyes: EOM: EOMs intact bila
[2021-01-28] MEDS: METOPROLOL SUCCINATE EXT REL 25 MG TABCR PO (14:18)
[2021-01-28 16:12] LABS: Glucose Point of Care 83 mg/dl (65-105)
[2021-01-28] MEDS: POTASSIUM CITRATE 5 MEQ TAB CR 10 MEQ PO (17:14)
[2021-01-28 21:31] LABS: Glucose Point of Care 113 mg/dl (65-105)
[2021-01-29] VITALS (8 sets, daily range): BP systolic 104–117; BP diastolic 52–71; PULSE 57–66; RESP 16–20; TEMP 36.2–37; O2SAT 96–100
[2021-01-29 05:08] LABS: Hematocrit 41.4 % (37.0-47.0); Hemoglobin 14.2 g/dL (12.0-15.0); Mean Corpuscular HGB Conc 34.3 g/dl (32-36); Mean Corpuscular Hemoglobin 32.7 pg (26-34); Mean Corpuscular Volume 95.4 fl (80-100); Mean Platelet Volume 10.6 fl (7.4-10.4); Platelet Count Result 229 k/mm3 (150-375); Red Blood Count 4.34 M/mm3 (4.2-5.4); Red Cell Distribution Width 11.9 % (11.5-14.5); White Blood Count 9.2 K/mm3 (4.5-10.0)
[2021-01-29 05:21] LABS: Alanine Aminotransferase 33 U/L (4-35); Albumin Level 3.7 g/dL (3.5-5.1); Alkaline Phosphatase 74 U/L (38-126); Anion Gap 6 mmol/L (8-16); Aspartate Amino Transferase 46 U/L (14-36); Bilirubin,Total 0.7 mg/dL (0.2-1.3); Blood Urea Nitrogen 11 mg/dL (7-17); Carbon Dioxide 23 mmol/L (22-30); Chloride 106 mmol/L (98-107); Estimated CRCL calculation 58 ml/min; Estimated Glomerular Filt Rate 57; Glucose 125 mg/dL (65-105); Magnesium 1.8 mg/dL (1.6-2.3); Potassium 3.8 mmol/L (3.4-5.0); Sodium 135 mmol/L (137-145)
[2021-01-29] MEDS: LEVOTHYROXINE SODIUM 88 MCG TABLET PO (06:09)
[2021-01-29 07:24] LABS: Glucose Point of Care 145 mg/dl (65-105)
[2021-01-29] MEDS: ASPIRIN 81 MG CHEWABLE TABLET PO (08:26)
[2021-01-29] MEDS: CHOLECALCIFEROL 1,000 UNITS TABLET 2000 UNITS PO (08:26)
[2021-01-29] MEDS: ENOXAPARIN 40 MG/0.4 ML SYRINGE SUB-Q (08:26)
[2021-01-29] MEDS: POTASSIUM CITRATE 5 MEQ TAB CR 10 MEQ PO (08:26)
[2021-01-29] MEDS: TICAGRELOR 90 MG TABLET PO (08:26)
[2021-01-29] MEDS: CHOLECALCIFEROL 400 UNITS TABLET (VIT D) PO (08:27)
[2021-01-29] MEDS: METOPROLOL SUCCINATE EXT REL 25 MG TABCR PO (08:27)
[2021-01-29] MEDS: ROSUVASTATIN 10 MG TABLET 20 MG PO (08:27)
[2021-01-29] MEDS: LOSARTAN POTASSIUM 25 MG TABLET PO (08:27)
--- NOTE | 2021-01-29 10:45 | PM.DS ---
DS: Admitting Diagnosis Admitting Diagnosis Admitting Diagnosis: ST-elevation SC DS: Discharge Diagnosis Discharge Diagnosis (1) ST elevation (STEMI) myocardial infarction: Qualifiers: Involved coronary artery: unspecified coronary artery Qualified Code(s): I21.3 - ST elevation (STEMI) myocardial infarction of unspecified site Code(s): I21.3 - ST elevation (STEMI) myocardial infarction of unspecified site Status: Acute (2) CHB (complete heart block): Code(s): I44.2 - Atrioventricular block, complete Status: Acute DS: Summary Hospital Course Reason for hospitalization: ST-elevation SC Hospital Course: the patient was admitted to the hospital after presenting to the emergency room with chest pain and ECG evidence of acute inferolateral myocardial infarction. She is brought to the cardiac catheterization lab and found to have abrupt thrombotic occlusion of the circumflex after the 1st OM branch. There were not no other coronary disease identified. She underwent successful revascularization of this receiving a large 4 mm drug-eluting stent with a shorter 3.5 mm drug-eluting stent at the distal margin of this. Excellent ROSE MARY 3 flow was restored in the remainder of the circumflex in the intervention was successful and uncomplicated. On the evening of the 2nd day in the hospital however the patient's rhythm became unstable she was having episodes of loss of consciousness and telemetry demonstrated evidence of high-grade AV block and 1 episode of multiple P waves with no ventricular response. When this occurred the patient had lost consciousness and was seizing. She was brought to the [facility] emerg[facility] that afternoon and received a temporary transvenous pacing wire placed via the femoral vein. The following day she was brought back to the [facility] and received a permanent Biotronik dual-chamber pacemaker as detailed in the operative note. The implantation was unremarkable and following that there were no further arrhythmias or complications. For the last 48 hours she has been asymptomatic ambulating and appears to be a good candidate for discharge. Discharge medicines are as detailed below. She was advised to restrict herself to light relatively sedentary activity until seen in the office. She is not to return to work until she is seen in the office. She will be brought back to the office next week Wednesday for removal of her pacemaker dressing. She will see me in the office in 2-3 weeks for follow-up. Status at Discharge Functional status at discharge: independent ambulation Overall status at discharge: patient is progressing back to baseline Time Spent with Patient Time attestation: Total time spent providing and/or coordinating discharge services: Time spent: Less than 30 minutes Exam Const: General: comfortable and no acute distress HENMT: Mouth: Yes moist mucous membranes Eyes: Sclera: sclerae normal Pupils: Equal, round and reactive pupils present Neck: Neck: supple and no JVD Other: normal troponin point mobile Resp: Effort & Inspection: normal respiratory effort Auscultation: clear to auscultation bilaterally Cardio: Rate: regular rate Rhythm: regular rhythm Other: no murmur no gallop, pacemaker incision /dressing are unremarkable GI: GI Palp: Yes Soft to palpation Auscultation: normal bowel sounds Skin: General skin exam: normal color Extrem: General: normal to inspection DS: Data Data Completed and Pending Labs on day of discharge: Labs from last 24 hours 01/29/21 01/29/21 01/29/21 07:14 04:35 04:35 WBC 9.2 RBC 4.34 Hgb 14.2 Hct 41.4 MCV 95.4 MCH 32.7 MCHC 34.3 RDW 11.9 Plt Count 229 MPV 10.6 H Sodium 135 L Potassium 3.8 Chloride 106 Carbon Dioxide 23 Anion Gap 6 L BUN 11 Creatinine 1.00 Estim Creat Clear Calc 58 Estimated GFR 57 L Glucose 125 H POC Capillary Glucose 145 H Calci
== END 2021-01-29 12:48 | disposition home or self-care (01) | DRG 243 ==
LOC: ANHED 21:00 → ANHICU 21:05 → ANHIMU 01-29 09:24 → ANHICU 01-31 10:06 → ANHIMU 01-31 10:06
PROVIDERS: Internal Medicine; Admitting Provider Specialist; Emergency Provider Emergency Medicine; PCP Family Medicine; Visit Provider Specialist
PROC: 4A023N7 Measurement of Cardiac Sampling and Pressure, Left Heart, Percutaneous Approach (ICD-10-PCS; CPT 93452; principal; 2021-01-25 21:25)
PROC: 027035Z Dilation of Coronary Artery, One Artery with Two Drug-eluting Intraluminal Devices, Percutaneous Approach (ICD-10-PCS; 2021-01-25 21:25)
PROC: 02H63JZ Insertion of Pacemaker Lead into Right Atrium, Percutaneous Approach (ICD-10-PCS; CPT 33210; principal; 2021-01-26 15:20)
PROC: 0JH606Z Insertion of Pacemaker, Dual Chamber into Chest Subcutaneous Tissue and Fascia, Open Approach (ICD-10-PCS; CPT 33208; principal; 2021-01-27 08:20)
DX: I21.3 ST elevation (STEMI) myocardial infarction of unspecified site (principal); I47.2 Ventricular tachycardia; I44.2 Atrioventricular block, complete; I25.10 Atherosclerotic heart disease of native coronary artery without angina pectoris; I10 Essential (primary) hypertension; E11.9 Type 2 diabetes mellitus without complications; F17.200 Nicotine dependence, unspecified, uncomplicated; E78.5 Hyperlipidemia, unspecified; I25.5 Ischemic cardiomyopathy
CPT/HCPCS: 33208; 33210; 36415; 71045; 71046; 80048; 80053; 80061; 81001; 82948; 83036; 83735; 84484; 85025; 85027; 85610; 85730; 87077; 87086; 87088; 87186; 93005; 93306; 93458; 96374; 99285; A9270; C1725; C1769; C1779; C1785; C1874; C1887; C1894; C9606; J0461; J0583; J0690; J0696; J1265; J1644; J1650; J2250; J2405; J3010; J3475; J3480; J7030; J7040